=== PATIENT | male | born 1950 | race Caucasian/White ===

== ENCOUNTER 2017-11-15 19:46 | Emergency (ER) | payer OTHER, BC ==
[~2017-11-15] VITALS: Ht 172.7 cm; Wt 99.5 kg
[~2017-11-15 19:46] MED LIST: CRESTOR5 MG PO; IBUPROFEN800 MG PO; LISINOPRIL2.5 MG PO; NEXIUM40 MG PO; PERCOCET 5/31 TABLET PO
[2017-11-15 21:33] LABS: HEMATOCRIT 45.2 % (38.0-50.0); MCH 29.6 PG (29.0-34.0); MCHC 33.6 G/DL (30.0-36.0); MCV 87.9 FL (86-99); MEAN PLAT.VOLUME 9.5 uM^3 (9.0-12.4); RBC DIS.WIDTH-CV 14.3 % (11.8-14.6); RBC DIS.WIDTH-SD 45.9 % (39-53); RED BLOOD COUNT 5.14 M/uL (4.00-5.50); WHITE BLOOD COUNT 10.1 K/uL (4.1-10.2)
[2017-11-15 21:37] LABS: PLATELET COUNT 339 K/uL (156-360)
[2017-11-15 21:42] LABS: CHLORIDE 106 mEq/L (99-109); POTASSIUM 4.6 mEq/L (3.7-5.4); SODIUM 136 mEq/L (136-147)
[2017-11-15 21:44] LABS: GLUCOSE 126 mg/dL (70-99)
[2017-11-15 21:45] LABS: ANION GAP 11 MEQ/L (2-14)
[2017-11-15 21:46] LABS: TOTAL BILIRUBIN 0.6 mg/dL (0.0-1.0)
[2017-11-15 21:48] LABS: ALKALINE PHOSPHATASE 65 IU/L (3-129); GFR ESTIMATE (CALCULATED) > 59 mL/min/ (58.99-99999)
[2017-11-15 21:49] LABS: UREA NITROGEN (BUN) 17 mg/dL (9-23)
[2017-11-15 21:50] LABS: DIRECT BILIRUBIN 0.2 mg/dL (0.0-0.3)
[2017-11-15 21:51] LABS: LIPASE 84 U/L (1.0-51.0)
[2017-11-15 21:54] LABS: TROP-I INTERPRETATION NEGATIVE; TROPONIN-I < 0.01 ng/mL (0.0-0.30)
[2017-11-15] MEDS ORDERED: PHENERGAN-CODE120 ML PO (22:16)
[2017-11-15 22:25] LABS: ERTH.SED.RATE 32 MM/HR (0-20)
[2017-11-15 22:31] LABS: ADD MIUA? NO; BILIRUBIN NEGATIVE; BLOOD NEGATIVE; COLOR YELLOW ((YELLOW)); GLUCOSE (STRIP) NEGATIVE; KETONES NEGATIVE; LEUKOCYTES NEGATIVE; NITRITE NEGATIVE; PROTEIN (STRIP) NEGATIVE; UCUL ADDED? NO; UROBILINOGEN 0.2 MG/DL (0.2-1.0)
[2017-11-15 22:32] LABS: C-REACTIVE PROTEIN 6.2 MG/L (0-10)
[2017-11-15 22:48] LABS: INTERNAL CONTROL VALID? YES; MONOSPOT (MONONUCLEOSIS SEROL) NEGATIVE
[2017-11-15 22:58] VITALS: BP 115/90
[2017-11-16 02:43] LABS: CK-MB 1.3 ng/mL (0.0-4.9)
[2017-11-16 03:37] LABS: CREATINE KINASE 171 IU/L (1-294); TOTAL CK 171 IU/L (1-294)
[2017-11-18 12:08] LABS: LYME DISEASE SEROLOGY SCREEN NEGATIVE (NEGATIVE)
== END 2017-11-15 22:59 | disposition home or self-care (01) ==
LOC: EME 19:46
PROVIDERS: Emergency Medicine
DX: E86.0 Dehydration (principal); J06.9 Acute upper respiratory infection, unspecified; N20.0 Calculus of kidney; I10 Essential (primary) hypertension; E78.5 Hyperlipidemia, unspecified; N40.0 Benign prostatic hyperplasia without lower urinary tract symptoms; G47.30 Sleep apnea, unspecified; Z91.041 Radiographic dye allergy status
CPT/HCPCS: 71020; 71275; 74177; 80048; 80076; 81003; 82550; 82553; 83605; 83690; 83880; 84443; 84484; 85027; 85651; 86140; 86308; 86615 90; 86618; 87040; 87086; 87207; 87449; 87502; 93005; 99281; 99285; J1100; J1200; J7030

== ENCOUNTER → 2017-12-22 | Outpatient (CLI) | payer OTHER, BC ==
[~2017-12-22] MED LIST changes: +CARDURA4 MG PO; +CODEINE PO; +COZAAR100 MG PO; +DOXYCYCLINE HY100 MG PO; -LISINOPRIL2.5 MG PO; +PHENERGAN-CODE120 ML PO; +TYLENOL PO
== END | disposition home or self-care (01) ==
LOC: NUC 08:18
DX: K31.89 Other diseases of stomach and duodenum (principal); K21.9 Gastro-esophageal reflux disease without esophagitis
CPT/HCPCS: 78264; A9541

== ENCOUNTER → 2018-02-03 | Outpatient (CLI) | payer OTHER, BC ==
[~2018-02-03] VITALS: Ht 170.2 cm; Wt 93.4 kg
[~2018-02-03] MED LIST changes: +FLOMAX0.4 MG PO
[2018-02-03 14:54] LABS: BASOPHIL (%) 0.7 % (0-1); BASOPHIL COUNT 0.1 K/uL (0-0.1); EOSINOPHIL (%) 3.1 % (0-5); EOSINOPHIL COUNT 0.2 K/uL (0-0.3); HEMATOCRIT 44.3 % (38.0-50.0); HEMOGLOBIN 14.4 G/DL (12.5-16.6); IMMATURE GRANULOCYTE (%) 0.1 % (0.0-0.7); LYMPHOCYTE (%) 37.1 % (15-42); LYMPHOCYTE COUNT 2.5 K/uL (1.0-2.8); MCH 29.3 PG (29.0-34.0); MCHC 32.5 G/DL (30.0-36.0); MONOCYTE (%) 8.2 % (3-12); MONOCYTE COUNT 0.6 K/uL (0-0.8); NEUTROPHIL (%) 50.8 % (45-76); NEUTROPHIL COUNT 3.4 K/uL (1.8-6.4); PLATELET COUNT 215 K/uL (156-360); RBC DIS.WIDTH-CV 13.2 % (11.8-14.6); RBC DIS.WIDTH-SD 43.8 % (39-53); RED BLOOD COUNT 4.92 M/uL (4.00-5.50); WHITE BLOOD COUNT 6.7 K/uL (4.1-10.2)
[2018-02-03 15:17] LABS: INTER. NORMALIZED RATIO 1.1
[2018-02-03 15:20] LABS: PTT 31.8 SEC (25-37)
== END | disposition home or self-care (01) ==
LOC: AMB 12-03 14:30
PROVIDERS: Internal Medicine Pulmonary Disease
PROC: 0BJ08ZZ Inspection of Tracheobronchial Tree, Via Natural or Artificial Opening Endoscopic (ICD-10-PCS; principal; 2018-02-03)
DX: R05 Cough (principal); K21.9 Gastro-esophageal reflux disease without esophagitis; G47.33 Obstructive sleep apnea (adult) (pediatric); E66.9 Obesity, unspecified; J20.9 Acute bronchitis, unspecified
CPT/HCPCS: 85025; 85610; 85730; J0461; J2250; J3010

== ENCOUNTER → 2018-04-26 | Outpatient (CLI) | payer OTHER, BC | END | disposition home or self-care (01) | LOC: RAD 15:54 | DX: N40.1 Benign prostatic hyperplasia with lower urinary tract symptoms (principal); R33.8 Other retention of urine | CPT/HCPCS: 76775 ==